=== PATIENT | male | born 1985 | race Caucasian/White ===

== ENCOUNTER 2019-09-09 08:47 | Outpatient (CLI) | payer BC, SELFPAY ==
[2019-09-09 08:58] LABS: Basophils Absolute Auto 0.04 K/mm3 (0.00-0.10); Basophils Percent Auto 0.6 % (0.0-1.0); Eosinophils Absolute Auto 0.33 K/mm3 (0.02-0.50); Eosinophils Percent Auto 4.7 % (1.0-6.0); Hemoglobin 16.9 g/dL (14.0-18.0); Immature Granulocyte Absolute 0.08 K/mm3 (0.00-0.00); Immature Granulocyte Percent A 1.1 % (0.0-0.0); Lymphocytes Absolute Auto 1.74 K/mm3 (1.10-4.50); Lymphocytes Percent Auto 24.6 % (18.0-42.0); Mean Corpuscular HGB Conc 35.2 g/dL (32.0-36.0); Mean Corpuscular Hemoglobin 31.8 pg (27.0-31.0); Mean Corpuscular Volume 90.4 fL (78.0-102.0); Mean Platelet Volume 10.5 fl (8.7-11.0); Monocytes Absolute Auto 0.45 K/mm3 (0.10-0.90); Monocytes Percent Auto 6.4 % (2.0-11.0); Neutrophils Absolute Auto 4.4 K/mm3 (1.7-7.2); Neutrophils Percent Auto 62.6 % (50.0-70.0); Platelet Count Result 194 K/mm3 (150-420); Red Blood Count 5.31 M/mm3 (4.70-6.10); Red Cell Distribution Width 12.4 % (11.6-14.4); White Blood Count 7.1 K/mm3 (4.8-10.8)
[2019-09-09 09:39] LABS: Anion Gap 12.2 mmol/L (7-16); Blood Urea Nitrogen 13 mg/dL (7-18); Calcium 8.9 mg/dL (8.5-10.1); Carbon Dioxide 29 mmol/L (21-32); Chloride 108 mmol/L (98-108); Estimated Glomerular Filt Rate > 60; Glucose 123 mg/dL (70-99); Osmolality Calculated 301 mOsm/kg (285-295); Potassium 4.2 mmol/L (3.5-5.1); Sodium 145 mmol/L (136-145)
== END 2019-09-09 08:48 | disposition home or self-care (01) ==
PROVIDERS: PCP Internal Medicine; Visit Provider Nurse Practitioner Family
DX: Z01.818 Encounter for other preprocedural examination (principal)
CPT/HCPCS: 36415; 80048; 85025

== ENCOUNTER 2020-01-11 15:49 | Outpatient (CLI) | payer BC, SELFPAY ==
--- NOTE | ~2020-01-11 | XR_ITS ---
XR ankle RT min 3V, XR foot RT min 3V 01/11/2020 16:11 Indication: Right foot and ankle pain after recent injury Procedure: 4 views right ankle and 4 views right foot Comparison: No prior studies for comparison. Findings: No fracture, subluxation or dislocation. Ankle mortise intact. Lisfranc joint within normal limits. Talar dome is normal. No focal soft tissue abnormality. Impression: 1: No acute bone or joint abnormality. Reviewed, dictated and finalized at location A. Impression: 1: No acute bone or joint abnormality. Impression: 1: No acute bone or joint abnormality.
== END 2020-01-11 15:50 | disposition home or self-care (01) ==
LOC: CHSIMG 15:51
PROVIDERS: PCP Internal Medicine; Visit Provider Internal Medicine
DX: S99.911A Unspecified injury of right ankle, initial encounter (principal)
CPT/HCPCS: 73610; 73630

== ENCOUNTER 2021-08-31 08:30 | Outpatient (CLI) | payer BC, SELFPAY ==
--- NOTE | ~2021-08-31 | CT_ITS ---
EXAMINATION: CT abdomen pelvis w con DATE: 08/31/2021 09:01 INDICATION: Inguinal hernia TECHNIQUE: Computed tomography (CT) of the abdomen and pelvis was performed with 100 cc Omnipaque 350 intravenous contrast. The dose-length product was 744.78 mGy-cm. Automated exposure control and iter ative reconstruction technique were employed. COMPARISON: None. FINDINGS: Lung bases are unremarkable. Heart size normal. No significant pleural or pericardial effus ion. Fatty infiltration of the liver. The spleen, pancreas, adrenal glands and right kidney are unrem arkable. Gallbladder is present. Small low-density lesion left kidney at the lower pole, most likely benign cyst. No acute osseous abnormality. No free air or free fluid. Nonobstructive bowel gas patter n. Colonic diverticulosis without evidence for diverticulitis. No evidence for inguinal hernia. Small fat-containing umbilical hernia. IMPRESSION: 1. No acute abdominal abnormality. 2: Hepatic steatosis. Reviewed, dictated and finalized at location B. [facility]
== END 2021-08-31 08:31 | disposition home or self-care (01) ==
LOC: CHSIMG 08:33
PROVIDERS: PCP Internal Medicine; Visit Provider Internal Medicine
DX: K40.90 Unilateral inguinal hernia, without obstruction or gangrene, not specified as recurrent (principal); N50.811 Right testicular pain
CPT/HCPCS: 74177; Q9967

== ENCOUNTER → 2021-09-25 13:31 | Outpatient (CLI) | payer BC, SELFPAY ==
--- NOTE | ~2021-09-25 | US_ITS ---
US scrotum doppler INDICATION: Right testicular pain TECHNIQUE: Testicular sonogram utilizing grayscale and color Doppler FINDINGS: The testes are normal in size and appearance. No focal lesions are seen. The right testes measures 3.8 x 1.8 x 2.7 cm centimeters, and the left testis measures 4.5 x 2.4 x 3 cm. There is norm al vascular flow to both testes. There is a right epididymal cyst measuring 5 mm. There is no varicocele or hydrocele. IMPRESSION: 1. Right epididymal cyst measuring 5 mm. Reviewed, dictated and finalized at location B. [employer]
== END ==
PROVIDERS: PCP Internal Medicine; Visit Provider Urology
DX: R10.31 Right lower quadrant pain (principal); N50.3 Cyst of epididymis
CPT/HCPCS: 76870; 93976

== ENCOUNTER 2022-04-11 08:57 | Outpatient (CLI) | payer BC, SELFPAY ==
--- NOTE | 2022-04-24 16:38 | WPDHOLTEREM ---
Holter/Event Monitor Holter/Event Monitor Date of procedure: 04/11/22 Holter/Event Procedure: Event Monitor Indications: Cardiac Arrhythmia Conclusion: 1. 7 days event monitor between 04/11/22-04/24/22. There are 11 available transmissions for analysis. 2. Underlying rhythm is sinus rhythm. HR range 57-141 bpm; average HR 89 bpm. 3. There are occasional premature supraventricular complexes with total burden of <1%. No supraventricular tachycardia. 4. There are occasional premature ventricular complexes with total burden of <1%. No ventricular tachycardia. 5. No significant pauses greater than 2 seconds. 6. Patient reports 4 episodes of symptoms of chest pain, heart racing, symptoms other than listed which demonstrate sinus rhythm, HR range 85-114 bpm.
== END 2022-04-11 08:58 | disposition home or self-care (01) ==
LOC: CHSCARD 08:59
PROVIDERS: PCP Internal Medicine; Visit Provider Internal Medicine
DX: I49.9 Cardiac arrhythmia, unspecified (principal)
CPT/HCPCS: 93270

== ENCOUNTER 2023-09-26 09:53 | Outpatient (CLI) | payer BC, SELFPAY ==
--- NOTE | ~2023-09-26 | CT_ITS ---
EXAMINATION: CT abdomen pelvis w con INDICATION: Acute left lower quadrant pain TECHNIQUE: Computed tomographic images of the abdomen and pelvis were obtained after the administrati on of 100 cc of Omnipaque 350 intravenous contrast. The dose-length product (DLP) was 831.48 mGy-cm. Automated exposure control and iterative reconstruction technique were employed. COMPARISON: 08/31/2021 FINDINGS: The lung bases are clear. The heart size is normal. The liver is diffusely low in attenuati on when compared with the spleen, consistent with hepatic steatosis. The spleen, pancreas, gallbladde r, and adrenal glands are normal. The right kidney is unremarkable. A 4 mm hypoattenuating lesion of the left kidney lower pole is too small to characterize but likely represents a cyst. No pathological ly enlarged abdominal or pelvic lymph nodes are identified. No free intraperitoneal gas or evidence o f bowel obstruction. There is a circumscribed lobule of fat adjacent to the distal descending colon w ith mild infiltration of the surrounding fat. The appendix is normal. IMPRESSION: 1. Epiploic appendagitis of the distal descending colon Reviewed, dictated and finalized at location L. [employer] [employer]
[2023-09-26 10:16] LABS: Appearance Urine Clear (Clear); Basophils Absolute Auto 0.05 K/mm3 (0.00-0.10); Basophils Percent Auto 0.5 % (0.0-1.0); Bilirubin Urine Negative (Negative); Blood Urine 1+ (Negative); Color Urine Yellow (Yellow); Eosinophils Absolute Auto 0.17 K/mm3 (0.02-0.50); Eosinophils Percent Auto 1.9 % (1.0-6.0); Glucose Urine UA Negative (Negative); Hematocrit 48.7 % (40.0-54.0); Hemoglobin 16.8 g/dL (14.0-18.0); Immature Granulocyte Absolute 0.08 K/mm3 (0.00-0.00); Immature Granulocyte Percent A 0.9 % (0.0-0.0); Ketones Urine Negative (Negative); Leukocyte Esterase Ur Negative LEU/UL (Negative); Lymphocytes Absolute Auto 1.91 K/mm3 (1.10-4.50); Lymphocytes Percent Auto 20.8 % (18.0-42.0); Mean Corpuscular HGB Conc 34.5 g/dL (32.0-36.0); Mean Corpuscular Hemoglobin 30.7 pg (27.0-31.0); Mean Platelet Volume 10.4 fl (8.7-11.0); Monocytes Absolute Auto 0.82 K/mm3 (0.10-0.90); Monocytes Percent Auto 8.9 % (2.0-11.0); Neutrophils Absolute Auto 6.2 K/mm3 (1.7-7.2); Nitrate Urine Negative (Negative); Platelet Count Result 206 K/mm3 (150-420); Protein Urine Negative (Negative); Red Blood Count 5.47 M/mm3 (4.70-6.10); Red Cell Distribution Width 12.2 % (11.6-14.4); Urobilinogen Urine 0.2 mg/dL (0.2-1.0); White Blood Count 9.2 K/mm3 (4.8-10.8)
[2023-09-26 10:23] LABS: Add Urine Microscopic? YES; Squamous Epithelial Cell Urine Rare /hpf (Few); WBC Urine 0-3 /hpf (0-3)
[2023-09-26 10:24] LABS: Bacteria Urine Trace /hpf; Budding Yeast Urine Present /hpf
[2023-09-26 10:47] LABS: Alanine Aminotransferase 49 U/L (16-63); Albumin Level 3.9 g/dL (3.4-5.0); Alkaline Phosphatase 99 U/L (46-116); Anion Gap 4 mmol/L (8-16); Aspartate Amino Transferase 22 U/L (15-37); Bilirubin,Total 0.8 mg/dL (0.00-1.00); Blood Urea Nitrogen 13 mg/dL (7-18); Calcium 8.9 mg/dL (8.5-10.1); Carbon Dioxide 33 mmol/L (21-32); Chloride 103 mmol/L (98-108); Estimated Glomerular Filt Rate > 60; Glucose 90 mg/dL (70-99); Osmolality Calculated 290 mOsm/kg (285-295); Potassium 4.4 mmol/L (3.5-5.1); Sodium 140 mmol/L (136-145); Total Protein 7.7 g/dL (6.4-8.2)
== END 2023-09-26 09:54 | disposition home or self-care (01) ==
LOC: CHSLAB 09:55
PROVIDERS: PCP Internal Medicine; Visit Provider Internal Medicine
DX: R10.32 Left lower quadrant pain (principal); K63.89 Other specified diseases of intestine
CPT/HCPCS: 36415; 74177; 80053; 81001; 85025; Q9967